=== PATIENT | female | born 1935 | race Caucasian/White ===

== ENCOUNTER 2017-02-16 12:10 | Emergency (ER) | payer OTHER ==
[2017-02-16 12:27] VITALS: BP 207/103; TEMP 98.4; O2SAT 95
[2017-02-16] MEDS ORDERED: ACETAMINOPHEN/CODEINE 300/30MG TAB PO ONE ×2 (13:18→13:48)
--- NOTE | 2017-02-16 13:23 | EDPHY ---
H & P Time Seen by Provider: 02/16/17 13:05 HPI/ROS: CHIEF COMPLAINT: Back pain HISTORY OF PRESENT ILLNESS: 81-year-old woman is visiting from [place]. Has chronic and ongoing back pain with previous spinal injections the last 1 on July 05 of this year. She presents with the same back pain , severity greater than usual which is lumbar radiating to her right leg near the knee. It is not associated with incontinence or weakness or numbness in the leg. Is a little bit worse with certain positions. It is mainly worse today because she forgot her Tylenol #3 in a Ziploc plastic bag on the counter at home in [place]. Symptoms moderate. No recent injury fall or new trauma. No fever or chills. REVIEW OF SYSTEMS: Eye: no change in vision ENT: no sore throat Cardiac: no chest pain or syncope Pulmonary: no cough or SOB Abdomen: no vomiting, diarrhea, abdominal pain Musculoskeletal: HPI Skin: no rash Neuro: no headache Constitutional: no fever : no urinary symptoms A comprehensive 10 point review of systems is otherwise negative aside from elements mentioned in the history of present illness. PAST MEDICAL HISTORY: Includes ongoing back pain. Bilateral total knee replacements. Thyroid. Social history: Visiting from [place], here with and daughter. Daughter expressed concern about patient's use of pain medication. General Appearance: Alert and conversant, cooperative. Eyes: No scleral icterus. ENT, Mouth: Normal mucous membranes. Respiratory: Normal respiratory effort, breath sounds equal, lungs are clear to auscultation. Cardiovascular: Regular rate and rhythm. Gastrointestinal: Abdomen is soft and non tender. Neurological: Alert and oriented x3. Normally conversant. Face symmetric, normal movement and sensation in all extremities. Toes downgoing bilaterally. No clonus. Patellar and ankle reflexes present bilaterally. No spinal tenderness. Skin: Warm and dry, no rashes. Musculoskeletal: No peripheral edema and no joint swelling. Psychiatric: Not agitated. Emergency Department course/MDM: Patient presents with worsening of her chronic back pain most likely because she is out of her pain medication. She requests Tylenol No. 3 because she know she can tolerate it without adverse effects or allergic reaction. Plan to refill her medication until Tuesday, lumbar spine x-ray to evaluate for the possibility of new compression fracture. Smoking Status: Never smoked Constitutional: Initial Vital Signs Temperature (C) 36.9 C 02/16/17 12:23 Heart Rate 84 02/16/17 12:23 Respiratory Rate 20 02/16/17 12:23 Blood Pressure 207/103 H 02/16/17 12:23 O2 Sat (%) 95 02/16/17 12:23 O2 Delivery Mode Room Air Allergies/Adverse Reactions: acetaminophen [From Vicodin] Allergy (Verified 02/16/17 12:20) betamethasone [From Diprolene] Allergy (Verified 02/16/17 12:18) clindamycin Allergy (Verified 02/16/17 12:18) dexlansoprazole [From Kapidex] Allergy (Verified 02/16/17 12:19) gabapentin Allergy (Verified 02/16/17 12:19) hydrocodone [From Vicodin] Allergy (Verified 02/16/17 12:20) hydromorphone [From Dilaudid] Allergy (Verified 02/16/17 12:18) lorazepam Allergy (Verified 02/16/17 12:19) metronidazole [From Flagyl] Allergy (Verified 02/16/17 12:19) morphine Allergy (Verified 02/16/17 12:19) nitrofurantoin [From Macrodantin] Allergy (Verified 02/16/17 12:19) propylene glycol [From Diprolene] Allergy (Verified 02/16/17 12:18) sucralfate malate, polymerized Allergy (Verified 02/16/17 12:20) tetanus and diphtheria toxoids Allergy (Verified 02/16/17 12:20) tetanus immune globulin Allergy (Verified 02/16/17 12:20) vilazodone Allergy (Verified 02/16/17 12:20) Home Medications: Medication Instructions Recorded Acetamin-Codein 300-30 mg/12.5 02/16/17 Acetaminophen with Codeine 1 tab PO Q6 PRN #17 tab 02/16/17 [Tylenol #3] Albuterol Hfa Anes Only 02/16/17 Ambien 02/16/17 Atorvastatin Calcium 02/16/17 CLONAZEPAM 02/16/17 Forteo 02/16/17 Levothyroxine 02/16/17 Movantik 02/16/17 Nexium 02/16/17 buPROPion 02/16/17 Medical Decision Making - Diagnostics Imaging Results: Imaging Impressions Lumbar Spine X-Ray 02/16/17 13:18 Impression: Severe scoliosis and associated degenerative changes.. No fracture identified. Differential Diagnosis: Differential considered including but not limited to cauda equina, compression fracture, spinal stenosis, lumbar radiculopathy. - Data Points Medications Given: Discontinued Medications Acetaminophen/Codeine Phosphate (Tylenol #3) 1 tab PO EDNOW ONE Stop: 02/16/17 13:19 Last Admin: 02/16/17 13:49 Dose: 1 tab Acetaminophen/Codeine Phosphate (Tylenol #3) 1 tab PO EDNOW ONE Stop: 02/16/17 13:49 Last Admin: 02/16/17 13:49 Dose: 1 tab Departure - Departure Disposition: Home, Routine, Self-Care Clinical Impression: Back pain Qualifiers: Back pain location: low back pain Chronicity: chronic Back pain laterality: right Sciatica presence: with sciatica Sciatica laterality: sciatica of right side Qualified Code(s): M54.41 - Lumbago with sciatica, right side Condition: Good Instructions: Back Pain (ED) Referrals: MOI MANZANARES [Other] - As per Instructions Prescriptions: Acetaminophen with Codeine [Tylenol #3] 1 tab PO Q6 PRN #17 tab PRN Reason: pain
[2017-02-16] MEDS ORDERED: ACETAMINOPHEN/CODEINE 300/30MG TAB ONE (13:47)
[2017-02-16 14:24] VITALS: PULSE 76; RESP 16
== END 2017-02-16 14:14 | disposition home or self-care (01) ==
DX: M54.41 Lumbago with sciatica, right side (principal)